=== PATIENT | female | born 1990 | race Caucasian/White ===

== ENCOUNTER → 2023-05-16 | Outpatient (CLI) | payer OTHER ==
--- NOTE | 2023-05-17 07:54 | MR ---
EXAMINATION TYPE: MR brain wo/w con DATE OF EXAM: 05/16/2023 COMPARISON: None HISTORY: Headaches, brain tumor removal at 6 years old CONTRAST: Performed utilizing 7.5 mL intravenous Gadavist gadolinium contrast. TECHNIQUE: Multiplanar, multiecho imaging on a 3.0 Erin magnet is performed through the brain. Stud y is performed within 24 hours of arrival to the hospital. The craniovertebral junction is normal. The pituitary is normal. Right vermis is atrophic. There ma y be postsurgical changes at the inferior medial right cerebellum. Diffusion-weighted imaging is performed. No abnormal hyperintensity is present to suggest an acute i ntracranial infarct or acute ischemic change. Some chronic white matter change most likely at the right medial cerebellar surgical bed. Some linear increased signals within the right frontal region. This may be an old shunt catheter path way. No shunt evident this time. No suspicious enhancement is evident. No changes to suggest recurrent brain neoplasm Ventricles and sulci are appropriate for the patient age. There is a large retention cyst within the left maxillary sinus. IMPRESSION: 1. Old postsurgical changes inferior medial right cerebellum with atrophy of the right vermis 2. No acute intracranial process apparent. Follow-up can be performed as clinically indicated
== END | disposition home or self-care (01) ==
LOC: RADMRIMAIN 11:21
PROVIDERS: ATTEND Family Medicine
DX: G31.9 Degenerative disease of nervous system, unspecified (principal); G43.909 Migraine, unspecified, not intractable, without status migrainosus; Z98.890 Other specified postprocedural states
CPT/HCPCS: 70553; A9585